=== PATIENT | female | born 2000 | race African-American/Black ===

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

== ENCOUNTER 2021-01-31 09:07 | Emergency (ER) | payer OTHER ==
[~2021-01-31] VITALS: Ht 165.1 cm; Wt 61.2 kg
[~2021-01-31 09:07] MED LIST changes: +AMOXICILLIN500 M1 PO; +NOHOMEMEDICATIONS
[2021-01-31 09:44] LABS: ABSOLUTE NEUTROPHILS 2.1 thou/uL (1.4-8.2); BASOPHILS 0.5 % (0.0-2.0); EOSINOPHILS 0.1 % (0.0-3.0); HEMATOCRIT 41.8 % (37.0-47.0); HEMOGLOBIN 13.9 gm/dL (12.0-15.0); LYMPHOCYTES 28.4 % (24.0-44.0); MCH 29.3 pg (26.0-34.0); MCHC 33.2 g/dL (28.0-37.0); MCV 88.3 fL (80.0-100.0); MONOCYTES 13.2 % (1.0-8.0); PLATELET COUNT 188 thou/uL (150-400); POLYS 57.8 % (36.0-66.0); RBC 4.73 mil/uL (4.20-5.00); RDW 12.4 % (10.5-14.5); WBC 3.7 thou/uL (4.0-11.0)
[2021-01-31 10:00] LABS: URINE BLOOD 3+ (Negative); URINE CLARITY SL CLOUDY; URINE COLOR YELLOW; URINE GLUCOSE-RANDOM* NEGATIVE (Negative); URINE KETONES 3+ (Negative); URINE LEUKOCYTES-REFLEX NEGATIVE (Negative); URINE NITRITE-REFLEX NEGATIVE (Negative); URINE PROTEIN (DIPSTICK) NEGATIVE (Negative); URINE SPECIFIC GRAVITY 1.025 (1.005-1.035)
[2021-01-31 10:07] LABS: ICTOTEST (BILI CONFIRMATORY) Negative (Negative); URINE BILIRUBIN NEGATIVE (Negative)
[2021-01-31 10:13] LABS: URINE REDUCING SUBSTANCE NEGATIVE
[2021-01-31 10:36] LABS: CASTS None Seen /LPF (None Seen); SQUAMOUS >10 Many /LPF (0-3)
[2021-01-31 10:37] LABS: CRYSTALS None Seen /LPF (None Seen)
[2021-01-31 10:39] LABS: URINE WBC-REFLEX 0-5 Rare /HPF (0-5)
[2021-01-31 10:40] LABS: BACTERIA-REFLEX 1-9 Few /HPF (None Seen); URINE RBC None Seen /HPF (NONE SEEN)
[2021-01-31 12:21] VITALS: BP 105/64
--- NOTE | 2021-02-01 08:32 | EKG ---
[address] [address] [place] [address] ELECTROCARDIOGRAM REPORT Name: HERVE CORONADO BENNIE [id number] Admission: 01/31/21 Attend Phys: Discharge: 01/31/21 Date of : 01 Report #: [id number] [facility] ED Test Date: 2021-01-31 Test Time: 09:15:27 Pat Name: HERVE CORONADO Department: Room: Gender: F Inspector Barrel: SATHYA : 2000 Requested By: Vasu Sanford Order Number: [id number] MD: Davonte Becerra Measurements Intervals [place] Rate: 91 P: 54 NM: 172 QRS: -2 QRSD: 111 T: -45 QT: 355 QTc: 437 Interpretive Statements Sinus rhythm Early R wave progression Nonspecific T abnormalities, diffuse leads Compared to ECG 03/07/2019 18:32:14 T-wave abnormality now present Electronically Signed On 02-01-2021 8:32:30 MECHANICAL FIELD ENGINEER by Davonte Becerra [email or web address] <ELECTRONICALLY SIGNED> By: Davonte Becerra MD, [facility] 02/01/21831 4 4 Davonte Becerra MD, FACC /EPI
== END 2021-01-31 12:22 | disposition home or self-care (01) ==
LOC: ER 09:07
PROVIDERS: Student in an Organized Health Care Education/Training Program
DX: R06.02 Shortness of breath (principal); R51.9 Headache, unspecified

== ENCOUNTER 2021-02-08 23:03 | Emergency (ER) | payer OTHER ==
[~2021-02-08] VITALS: Ht 165.1 cm; Wt 61.2 kg
[2021-02-08 23:09] VITALS: BP 112/81
[2021-02-08] MEDS ORDERED: PREDNISONE 20 M20 MG PO (23:32)
== END 2021-02-09 00:21 | disposition home or self-care (01) ==
LOC: ER 23:03
DX: L50.8 Other urticaria (principal); T78.40XA Allergy, unspecified, initial encounter; Y92.89 Other specified places as the place of occurrence of the external cause

== ENCOUNTER → 2021-04-03 | Day surgery (SDC) | payer OTHER ==
[~2021-04-03] VITALS: Ht 165.1 cm; Wt 63.0 kg
[~2021-04-03] MED LIST changes: +PREDNISONE 20 M20 MG PO
[2021-04-03 09:58] VITALS: BP 119/73
[2021-04-03 16:34] VITALS: BP 119/73
--- NOTE | 2021-04-04 10:42 | O ---
[address] [address] OPERATIVE REPORT Name: HERVE CORONADO BENNIE Room #: REG [facility]..#: [id number] Admission: 04/03/21 Attend Phys: Nickolas Fontanez MD Discharge: Date of : 01 Report #: [id number] THIS REPORT FOR: cc: FAM - No family physician/PCP FAM - No family physician/PCP Nickolas Fontanez MD ~ DATE OF SERVICE: 04/03/2021 SERVICE: Orthopedics. FACILITY: [facility]. SURGEON: Nickolas Fontanez MD ONLINE MARKETING COORDINATOR: Annia Ag. INDICATIONS FOR ONLINE MARKETING COORDINATOR: Graft preparation, extremity positioning, assistance with the reconstruction. PREOPERATIVE DIAGNOSES: 1. Right knee pain. 2. Right knee recurrent patellar instability. 3. Right knee medial patellofemoral ligament insufficiency. 4. Right knee chondromalacia. 5. Right knee lateral patellar maltracking. 6. Right knee patella ronal. POSTOPERATIVE DIAGNOSES: 1. Right knee pain. 2. Right knee recurrent patellar instability. 3. Right knee medial patellofemoral ligament insufficiency. 4. Right knee chondromalacia. 5. Right knee lateral patellar maltracking. 6. Right knee patella ronal. PROCEDURES: 1. Right knee medial and distalizing tibial tubercle osteotomy. 2. Right knee open medial patellofemoral ligament reconstruction with allograft. 3. Right knee arthroscopy with chondroplasty. COMPLICATIONS: None. DRAINS: None. SPECIMENS: None. [address] [place] [address] OPERATIVE REPORT Name: HERVE CORONADO [facility] Room #: REG [facility] M.R.#: [id number] Admission: 04/03/21 Attend Phys: Nickolas Fontanez MD Discharge: Date of : 01 Report #: [id number] ANESTHESIA: General with regional. FINDINGS: 1. A 10 mm medial & 10mm distalization. 2. Covington and Nephew 4.5 mm steel large fragment screws, x 4 mm x 2 screws. 3. Allograft MPFL reconstruction with Arthrex cortical button and 3.0 mm SutureTak anchor x 2. 4. Anatomic patellar tracking confirmed arthroscopically at conclusion of the reconstruction. 5. Mild proximal pole superficial chondromalacia treated with limited chondroplasty. HISTORY: The patient is a 20-year-old young lady with history of recurrent patellar instability as well as persistent anterior knee pain secondary to patellar maltracking. She had imaging consistent with approximately 10 mm of patella ronal as well as lateral patellar maltracking. On physical examination, she has patellar apprehension as well on exam. Her recurrent episode were affecting her such that she is having pain with simple activities and she works as a labor intensive job and after failing conservative measures including rest, activity modifications, physical therapy, oral medicines. She wished to move for definitive surgical treatment. Risks, benefits, alternatives and indications for surgery discussed with her in detail. Risks include but not limited to pain, bleeding, infection, injury to nerves or blood vessels, malunion or nonunion of the osteotomy for recurrent instability, persistent pain despite surgical intervention, failure of the reconstruction, need for further surgery as well as complications related to anesthesia. Despite the risks, she wished to proceed. PROCEDURE IN DETAIL: After right lower extremity was correctly identified in the operative extremity, the patient underwent regional nerve block. She was then taken to the operating room where general anesthesia was induced. She was padded appropriately. Prophylactic antibiotics were administered at appropriate time. Tourniquet was applied to right leg. Right lower extremity was then prepped and draped in sterile fashion. Timeout procedure performed. Examination under anesthesia demonstrated gross lateral patellar laxity as well as lateral patellar tracking and a J sign and obvious patella ronal. Esmarch was used. Tourniquet was inflated to 250 mmHg. Standard anterolateral viewing portal was established followed by anteromedial working portal. Diagnostic arthroscopy revealed intact articular cartilage throughout the knee other than some chondromalacia of the proximal pole of the patella. There were no articular cartilage lesions from the previous instability episodes on the femur. There was obvious lateral patellar tracking and with the knee flexed to 60 degrees of flexion. The patella still ran laterally and did not engage the [address] [address] OPERATIVE REPORT Name: HERVE CORONADO KAYLA [facility] Room #: REG [facility] M.R.#: [id number] Admission: 04/03/21 Attend Phys: Nickolas Fontanez MD Discharge: Date of : 01 Report #: [id number] trochlea properly until essentially 90 degrees of flexion. Shaver was used to perform a limited chondroplasty. Then, the arthroscopic effusion was drained. Instruments removed. Attention was turned towards the open portion of the procedure. A longitudinal incision was made along the lateral border of the tibial tubercle. Dissection was taken down to the tubercle itself. We templated the position for the fixation screws and then the superficial fascia of the anterior compartment was incised sharply. The anterior compartment was dissected off the lateral border of the tibia exposing the tubercle and then a microsagittal saw was used to create a transverse cut in the tibial tubercle. The preoperative templating indicated that this patient needed medialization as well as distalization, but she did not need to be translated anterior based on her resting anatomy. I templated approximately 10 mm distalization due to the significant patella ronal that she had ultimately based on multiple patella all the parameters, which measured up to 14 mm ronal, but I did not want to overconstrain the extensor mechanism. At the osteotomy, a transverse cut was made. A distal cut was made and then I used the saw and osteotome to create a vertical wedge 10 mm distal and then undercut this with the back of a sagittal saw, creating a blunt surface to reduce the tubercle 2 at appropriate time. A 1-inch incision was then made along the medial border of the patella and dissection was taken down along the patella exposing the medial border, which was then exposed with a rongeur, creating a small trough for the ligament reconstruction and placed two 3.0 mm Arthrex SutureTaks, one at the 12:30 position and one at the 3 o'clock position to recreate the MPFL insertion on the patella and then dissected down to the second and third layers per standard technique. Utilizing a cross-table lateral, the Schottle point was identified on the medial femur and then a guidepin was advanced across the femur, exiting out the lateral cortex and then this was reamed to a 6 mm x 25 mm socket on the medial femur and then the graft was seated into the socket, folded in half creating essentially a V-shaped graft. The Arthrex TightRope was securely affixed to the lateral cortex with the TightRope mechanism and this seated the graft in the medial femur well. I passed the graft back through the pathway that was dissected bluntly and it exited out at the medial patella. We then proceeded with fixation of the tibial tubercle using the preoperative templating and based on the preoperative templating and utilizing a ruler, the tubercle was then reduced, which distalized and then medialized tubercle and a K-wire was used for provisional fixation. I then placed the compression screws. The cortical compression screws in lag fashion, achieving excellent cortical purchase. The screw heads were countersunk appropriately. The first screw was placed distally and this was approximately 2 mm longer on the final x-rays [facility] [address] [place] [address] OPERATIVE REPORT Name: HERVE CORONADO [facility] Room #: REG [facility]..#: [id number] Admission: 04/03/21 Attend Phys: Nicoklas Fontanez MD Discharge: Date of : 01 Report #: [id number] because of the need to compress and reached the far cortex. Care was taken to drill with the knee flexed with a cross-table lateral to avoid posterior neurovascular injury. Excellent compression was achieved across the osteotomy with the tubercle in the appropriate position. We then packed bone graft along the lateral aspect to the osteotomy and then attended to the proximal reconstruction. The SutureTaks had been reloaded with the sutures to allow one suture via a lead stitch and the other stitches to be a loop fixation stitches, so each limb of the allograft was passed through one loop in an anchor and then the graft was tensioned appropriately. The suture configuration allowed for adjustment of each respective limbs appropriate tensioning and then this was tied for secure fixation. The graft access was then laid along the medial aspect of the patella and #2 FiberWire was used to oversew the medial retinaculum and the medial cuff on the patella into the graft medially. At this point, final x-rays were taken confirming appropriate position of all hardware and appropriate alignment. The scope was placed back into the knee and we visualized the knee in slight flexion approximately 30 degrees and noted that the patella was anatomically engaged within the trochlea. All wounds were irrigated prior to placement of bone graft along the tibia. The medial patellofemoral ligament wound was closed with 2-0 Vicryl as was the osteotomy incision and then Monocryl and Steri-Strips were applied. Sterile dressing was applied followed by a compression hose and a PolarCare device as well as a hinged knee brace. POSTOPERATIVE PLAN: Nonweightbearing x 6 weeks. Range of motion 0-30 degrees x 3 weeks and advance to 15-20 degrees per week with a goal of 90 degrees flexion by 6 weeks postoperatively. Advance range of motion without restriction thereafter at 6 weeks. <ELECTRONICALLY SIGNED> By: Nickolas Fontanez MD 04/04/21 1042 [id number] Nickolas Fontanez MD /nt
== END | disposition home or self-care (01) ==
LOC: OR 03-27 09:56
PROVIDERS: ATTEND Orthopaedic Surgery Sports Medicine
DX: M25.561 Pain in right knee (principal); M23.51 Chronic instability of knee, right knee; M24.29 Disorder of ligament, other specified site; M94.261 Chondromalacia, right knee; M22.2X1 Patellofemoral disorders, right knee
CPT/HCPCS: 50010; 50101; 50386; 50405; 50951; 50954; 53337; 56526; 56527; 56528; 56530; 57103; 57179; 58129; 58131; 58132; 58589; 58597; 58680; 58686; 58997; 59024; 59178; 59179; 59180; 59184; 62110; 62900; 64039; 70005